=== PATIENT | male | born 1945 | race Caucasian/White ===

== ENCOUNTER → 2019-12-18 | Outpatient (CLI) | payer MEDICARE ==
[~2019-12-18] MED LIST: CARV3.12 PO; DULA0.75 SQ; FERR325T22 PO; FURO40TA5 PO; INSU100I24 SQ; LISI-617 PO; MAGN400T40 PO; METO5TAB7 PO; POTA-79 PO; SPIR25TA6 PO; TRAM50TA4 PO
== END | disposition home or self-care (01) ==
LOC: WHH 08:20
PROVIDERS: ATTEND Surgery
DX: E11.621 Type 2 diabetes mellitus with foot ulcer (principal); I70.235 Atherosclerosis of native arteries of right leg with ulceration of other part of foot; L97.512 Non-pressure chronic ulcer of other part of right foot with fat layer exposed; S91.301D Unspecified open wound, right foot, subsequent encounter; E11.22 Type 2 diabetes mellitus with diabetic chronic kidney disease; I13.0 Hypertensive heart and chronic kidney disease with heart failure and stage 1 through stage 4 chronic kidney disease, or unspecified chronic kidney disease; I50.22 Chronic systolic (congestive) heart failure; N18.3 Chronic kidney disease, stage 3 (moderate); E11.40 Type 2 diabetes mellitus with diabetic neuropathy, unspecified; E11.51 Type 2 diabetes mellitus with diabetic peripheral angiopathy without gangrene; I48.20 Chronic atrial fibrillation, unspecified; E78.5 Hyperlipidemia, unspecified; J44.9 Chronic obstructive pulmonary disease, unspecified; I25.10 Atherosclerotic heart disease of native coronary artery without angina pectoris; G47.33 Obstructive sleep apnea (adult) (pediatric); E03.9 Hypothyroidism, unspecified; E66.9 Obesity, unspecified; Z68.35 Body mass index [BMI] 35.0-35.9, adult; Z87.891 Personal history of nicotine dependence; Z95.0 Presence of cardiac pacemaker; Z95.1 Presence of aortocoronary bypass graft; X58.XXXD Exposure to other specified factors, subsequent encounter
CPT/HCPCS: 11042; 82948; A4450; A6021; G0463

== ENCOUNTER → 2019-12-25 | Outpatient (CLI) | payer MEDICARE | END | disposition home or self-care (01) | LOC: WHH 08:30 | PROVIDERS: ATTEND Surgery | DX: E11.621 Type 2 diabetes mellitus with foot ulcer (principal); I70.235 Atherosclerosis of native arteries of right leg with ulceration of other part of foot; L97.512 Non-pressure chronic ulcer of other part of right foot with fat layer exposed; S91.301D Unspecified open wound, right foot, subsequent encounter; E11.22 Type 2 diabetes mellitus with diabetic chronic kidney disease; I13.0 Hypertensive heart and chronic kidney disease with heart failure and stage 1 through stage 4 chronic kidney disease, or unspecified chronic kidney disease; I50.22 Chronic systolic (congestive) heart failure; N18.3 Chronic kidney disease, stage 3 (moderate); E11.40 Type 2 diabetes mellitus with diabetic neuropathy, unspecified; E11.51 Type 2 diabetes mellitus with diabetic peripheral angiopathy without gangrene; I48.20 Chronic atrial fibrillation, unspecified; E78.5 Hyperlipidemia, unspecified; J44.9 Chronic obstructive pulmonary disease, unspecified; I25.10 Atherosclerotic heart disease of native coronary artery without angina pectoris; G47.33 Obstructive sleep apnea (adult) (pediatric); E03.9 Hypothyroidism, unspecified; E66.9 Obesity, unspecified; Z68.35 Body mass index [BMI] 35.0-35.9, adult; Z87.891 Personal history of nicotine dependence; Z95.0 Presence of cardiac pacemaker; Z95.1 Presence of aortocoronary bypass graft; X58.XXXD Exposure to other specified factors, subsequent encounter | CPT/HCPCS: 11042; A6021 ==

== ENCOUNTER 2020-01-15 08:30 | Outpatient (CLI) | payer MEDICARE | END 2020-01-15 13:58 | disposition home or self-care (01) | LOC: WHH 08:30 | PROVIDERS: ATTEND Surgery | DX: E11.621 Type 2 diabetes mellitus with foot ulcer (principal); I70.235 Atherosclerosis of native arteries of right leg with ulceration of other part of foot; L97.512 Non-pressure chronic ulcer of other part of right foot with fat layer exposed; S91.301D Unspecified open wound, right foot, subsequent encounter; E11.22 Type 2 diabetes mellitus with diabetic chronic kidney disease; I13.0 Hypertensive heart and chronic kidney disease with heart failure and stage 1 through stage 4 chronic kidney disease, or unspecified chronic kidney disease; I50.22 Chronic systolic (congestive) heart failure; N18.3 Chronic kidney disease, stage 3 (moderate); E11.40 Type 2 diabetes mellitus with diabetic neuropathy, unspecified; E11.51 Type 2 diabetes mellitus with diabetic peripheral angiopathy without gangrene; I42.0 Dilated cardiomyopathy; E78.5 Hyperlipidemia, unspecified; J44.9 Chronic obstructive pulmonary disease, unspecified; I25.10 Atherosclerotic heart disease of native coronary artery without angina pectoris; G47.33 Obstructive sleep apnea (adult) (pediatric); E03.9 Hypothyroidism, unspecified; E66.9 Obesity, unspecified; Z68.35 Body mass index [BMI] 35.0-35.9, adult; Z87.891 Personal history of nicotine dependence; Z95.0 Presence of cardiac pacemaker; Z95.1 Presence of aortocoronary bypass graft; X58.XXXD Exposure to other specified factors, subsequent encounter | CPT/HCPCS: G0463 ==

== ENCOUNTER 2022-03-13 14:21 | Inpatient (IN) | payer MEDICARE ==
[~2022-03-13] VITALS: Ht 172.7 cm; Wt 93.8 kg
[~2022-03-13 14:21] MED LIST changes: -LISI-617 PO; +LISI5TAB21 PO
[2022-03-13] MEDS ORDERED: BACITRACIN 1 EACH PACKET TP ONE (15:20)
[2022-03-13 15:47] LABS: BASOPHILS % (AUTO) 0.3 % (0.0-5.0); EOSINOPHILS % (AUTO) 0.4 % (0.0-8.0); HEMATOCRIT 42.8 % (42-54); MEAN CORPUSCULAR HEMOGLOBIN 29.9 pg (27.0-33.0); MEAN CORPUSCULAR HGB CONC 34.3 g/dL (32.0-36.0); MONOCYTES % (AUTO) 6.4 % (3.0-13.0); NEUTROPHILS % (AUTO) 77.6 % (40.0-77.0); PLATELET COUNT (AUTO) 170 K/uL (130-400); RED BLOOD CELL COUNT(AUTO) 4.92 MIL/uL (4.50-6.20); RED CELL DISTRIBUTION WIDTH 12.5 % (11.0-15.5); WHITE BLOOD COUNT (AUTO) 7.1 K/uL (4.8-10.8)
[2022-03-13 16:09] LABS: ALBUMIN 2.6 g/dL (3.5-5.0); POTASSIUM 3.5 mmol/L (3.5-5.1); TOTAL PROTEIN, SERUM 6.8 g/dL (6.0-8.3)
[2022-03-13] MEDS ORDERED: INSULIN HUMULIN R 100 UNIT/ML 3ML SQ ONE (16:30)
[2022-03-13] MEDS ORDERED: 0.9% NACL 500ML IV.SOLN 500 ML IV ONE (16:30)
[2022-03-13] MEDS ORDERED: 0.9%NACL 1000ML 1,000 ML IV ONE (16:30)
[2022-03-13 17:02] LABS: APPEARANCE,URINE CLEAR (CLEAR); BILIRUBIN,URINE NEGATIVE (NEGATIVE); COLOR,URINE LIGHT-YELLOW (YELLOW); GLUCOSE, URINE (UA) >=1000 mg/dL (NEGATIVE); KETONES,URINE NEGATIVE (NEGATIVE); LEUKOCYTE ESTERASE ,URINE NEGATIVE Leu/uL (NEGATIVE); NITRATE,URINE NEGATIVE (NEGATIVE); OCCULT BLOOD,URINE NEGATIVE (NEGATIVE); PROTEIN,URINE 30 mg/dL (NEGATIVE); UROBILINOGEN,URINE 0.2 mg/dL (0.2-1.0)
[2022-03-13 17:04] LABS: MUCUS,URINE RARE LPF (None Seen); RBC,URINE 0-1 /HPF (0-1); WBC,URINE 0-1 /HPF (0-1)
[2022-03-13] MEDS: 1/2 NS 1000ML 1,000 ML IV SCH (18:56)
[2022-03-13] MEDS: CEFTRIAXONE 1G VIAL IVP SCH (20:00)
[2022-03-13] MEDS: APIXABAN 5 MG TABLET PO SCH (21:38)
[2022-03-13] MEDS: INSULIN GLARGINE 100 UNITS/ML 10 ML VIAL SQ SCH (21:38)
[2022-03-13] MEDS: INSULIN HUMULIN R 100 UNIT/ML 3ML SQ SCH (21:38)
[2022-03-13 23:30] VITALS: BP 148/52
[2022-03-14 03:41] VITALS: BP 134/44
[2022-03-14] MEDS ORDERED: ROSU20TA31 PO (03:47)
[2022-03-14] MEDS ORDERED: FINA5TAB41 PO (03:47)
[2022-03-14] MEDS ORDERED: METO-391 PO (03:47)
[2022-03-14] MEDS ORDERED: RIVA20TA PO (03:47)
[2022-03-14] MEDS ORDERED: METO2.5T2 PO (03:47)
[2022-03-14] MEDS ORDERED: LISI20TA24 PO (03:47)
[2022-03-14] MEDS ORDERED: FERR325T29 PO (03:47)
[2022-03-14] MEDS ORDERED: FURO40TA5 PO (03:47)
[2022-03-14] MEDS: INSULIN HUMULIN R 100 UNIT/ML 3ML SQ SCH ×4 (05:56→19:42)
[2022-03-14 07:12] VITALS: BP 152/69
[2022-03-14] MEDS: APIXABAN 5 MG TABLET PO SCH ×2 (08:24→19:35)
[2022-03-14] MEDS ORDERED: SEMA3TAB4 PO (11:06)
[2022-03-14] MEDS ORDERED: EMPA1TAB19 PO (11:06)
[2022-03-14] MEDS ORDERED: ACETAMINOPHEN 325 MG TAB PO PRN (12:00)
[2022-03-14] MEDS ORDERED: ACETAMINOPHEN 325 MG TAB ONE (12:01)
[2022-03-14 12:15] VITALS: BP 133/40
[2022-03-14] MEDS: 1/2 NS 1000ML 1,000 ML IV SCH (13:48)
[2022-03-14 16:08] VITALS: BP 166/60
[2022-03-14 19:00] VITALS: BP 143/50
[2022-03-14] MEDS: CEFTRIAXONE 1G VIAL IVP SCH (19:35)
[2022-03-14] MEDS: INSULIN GLARGINE 100 UNITS/ML 10 ML VIAL SQ SCH (19:42)
[2022-03-14 23:26] VITALS: BP 152/53
[2022-03-15 03:51] VITALS: BP 149/55
[2022-03-15 05:39] LABS: BASOPHILS % (AUTO) 0.3 % (0.0-5.0); EOSINOPHILS % (AUTO) 2.5 % (0.0-8.0); HEMATOCRIT 41.4 % (42-54); LYMPHOCYTES % (AUTO) 28.3 % (21.0-51.0); MEAN CORPUSCULAR HEMOGLOBIN 32.1 pg (27.0-33.0); MEAN CORPUSCULAR HGB CONC 35.7 g/dL (32.0-36.0); MEAN CORPUSCULAR VOLUME 89.8 fL (79-99); MONOCYTES % (AUTO) 6.9 % (3.0-13.0); NEUTROPHILS % (AUTO) 61.6 % (40.0-77.0); PLATELET COUNT (AUTO) 188 K/uL (130-400); RED BLOOD CELL COUNT(AUTO) 4.61 MIL/uL (4.50-6.20); WHITE BLOOD COUNT (AUTO) 7.2 K/uL (4.8-10.8)
[2022-03-15] MEDS: INSULIN HUMULIN R 100 UNIT/ML 3ML SQ SCH ×4 (05:45→21:53)
[2022-03-15 05:54] LABS: CREATININE 1.2 mg/dL (0.5-1.5)
[2022-03-15 05:58] LABS: POTASSIUM 2.6 mmol/L (3.5-5.1)
[2022-03-15] MEDS ORDERED: LIDOCAINE HCL-MPF 1% 2ML VIAL IV PRN (07:00)
[2022-03-15] MEDS ORDERED: MAGNESIUM 2GM PREMIX 50ML 50 ML IV PRN (07:00)
[2022-03-15 08:00] VITALS: BP 148/51
[2022-03-15] MEDS: RIVAROXABAN 20 MG TABLET PO SCH (08:22)
[2022-03-15] MEDS: FERROUS SULFATE 325 MG TABLET.DR PO SCH (08:22)
[2022-03-15] MEDS: METOLAZONE 2.5 MG TABLET PO SCH (08:22)
[2022-03-15] MEDS: METOPROLOL SUCCINATE 50 MG TAB.SR.24H PO SCH (08:22)
[2022-03-15] MEDS: FINASTERIDE 5 MG TABLET PO SCH (08:22)
[2022-03-15] MEDS: FUROSEMIDE 40 MG TABLET PO SCH ×2 (08:23→20:38)
[2022-03-15] MEDS: LISINOPRIL 20 MG TABLET PO SCH (08:23)
[2022-03-15] MEDS: BACITRACIN 28.4 GM OINT TP SCH (08:24)
[2022-03-15] MEDS: KCL 20 MEQ ERTAB PO PRN (08:27)
[2022-03-15] MEDS: RYBELSUS 3 MG PO SCH (08:28)
[2022-03-15] MEDS: SYNJARDY PO SCH (08:28)
[2022-03-15 12:00] VITALS: BP 154/63
[2022-03-15] MEDS: 1/2 NS 1000ML 1,000 ML IV SCH (13:13)
[2022-03-15] MEDS: POTASSIUM CHLORIDE 20MEQ/100ML 100 ML IV PRN ×2 (13:25→23:24)
[2022-03-15] MEDS: POTASSIUM CHLORIDE 10% ELIXIR 20 MEQ/15 ML UDCUP PO PRN ×2 (13:25→20:39)
[2022-03-15 16:00] VITALS: BP 138/41
[2022-03-15 20:00] VITALS: BP 149/66
[2022-03-15] MEDS: CEFTRIAXONE 1G VIAL IVP SCH (20:38)
[2022-03-15] MEDS ORDERED: ATORVASTATIN 40 MG TABLET PO SCH (21:00)
[2022-03-15] MEDS: INSULIN GLARGINE 100 UNITS/ML 10 ML VIAL SQ SCH (21:54)
[2022-03-16] VITALS: BP 177/61
[2022-03-16 04:00] VITALS: BP 162/66
[2022-03-16] MEDS: 1/2 NS 1000ML 1,000 ML IV SCH ×2 (05:07→06:10)
[2022-03-16] MEDS: INSULIN HUMULIN R 100 UNIT/ML 3ML SQ SCH ×2 (05:36→11:55)
[2022-03-16 08:00] VITALS: BP 132/45
[2022-03-16] MEDS: METOPROLOL SUCCINATE 50 MG TAB.SR.24H PO SCH (08:47)
[2022-03-16] MEDS: FERROUS SULFATE 325 MG TABLET.DR PO SCH (08:47)
[2022-03-16] MEDS: METOLAZONE 2.5 MG TABLET PO SCH (08:47)
[2022-03-16] MEDS: FINASTERIDE 5 MG TABLET PO SCH (08:47)
[2022-03-16] MEDS: RIVAROXABAN 20 MG TABLET PO SCH (08:48)
[2022-03-16] MEDS: LISINOPRIL 20 MG TABLET PO SCH (08:48)
[2022-03-16] MEDS: SYNJARDY PO SCH (08:48)
[2022-03-16] MEDS: FUROSEMIDE 40 MG TABLET PO SCH (08:48)
[2022-03-16] MEDS: RYBELSUS 3 MG PO SCH (08:48)
[2022-03-16] MEDS: BACITRACIN 28.4 GM OINT TP SCH (08:49)
[2022-03-16 09:41] LABS: BASOPHILS % (AUTO) 0.4 % (0.0-5.0); EOSINOPHILS % (AUTO) 2.1 % (0.0-8.0); LYMPHOCYTES % (AUTO) 24.8 % (21.0-51.0); MEAN CORPUSCULAR HEMOGLOBIN 33.8 pg (27.0-33.0); MEAN CORPUSCULAR HGB CONC 36.7 g/dL (32.0-36.0); MEAN CORPUSCULAR VOLUME 92.1 fL (79-99); MONOCYTES % (AUTO) 6.7 % (3.0-13.0); NEUTROPHILS % (AUTO) 65.5 % (40.0-77.0); PLATELET COUNT (AUTO) 215 K/uL (130-400); RED BLOOD CELL COUNT(AUTO) 4.67 MIL/uL (4.50-6.20); RED CELL DISTRIBUTION WIDTH 13.9 % (11.0-15.5); WHITE BLOOD COUNT (AUTO) 10.1 K/uL (4.8-10.8)
[2022-03-16 09:48] LABS: CREATININE 1.3 mg/dL (0.5-1.5); POTASSIUM 3.1 mmol/L (3.5-5.1)
[2022-03-16] MEDS: POTASSIUM CHLORIDE 20MEQ/100ML 100 ML IV PRN (11:02)
[2022-03-16 12:00] VITALS: BP 136/94
[2022-03-16] MEDS: KCL 20 MEQ ERTAB PO PRN ×2 (12:03→15:58)
[2022-03-16 16:00] VITALS: BP 138/62
== END 2022-03-16 17:15 | DRG 194 ==
LOC: EDH 14:21 → EDHIP 17:56 → OBSVTOIN 17:56 → 3AH 23:31
PROVIDERS: ADMIT Internal Medicine; ATTEND Internal Medicine
DX: J18.9 Pneumonia, unspecified organism (principal); J44.0 Chronic obstructive pulmonary disease with (acute) lower respiratory infection; E11.65 Type 2 diabetes mellitus with hyperglycemia; E86.0 Dehydration; I50.9 Heart failure, unspecified; I48.91 Unspecified atrial fibrillation; E78.5 Hyperlipidemia, unspecified; I25.10 Atherosclerotic heart disease of native coronary artery without angina pectoris; I11.0 Hypertensive heart disease with heart failure; Z79.01 Long term (current) use of anticoagulants; Z79.4 Long term (current) use of insulin
CPT/HCPCS: 36415; 70450; 72125; 80048; 80053; 81001; 82948; 83735; 84484; 85025; 93005; 97039; G0378; J0696; J1815; J3480; J7040

== ENCOUNTER 2022-04-13 14:20 | Observation (INO) | payer MEDICARE ==
[~2022-04-13] VITALS: Ht 170.2 cm; Wt 99.8 kg
[~2022-04-13 14:20] MED LIST changes: -CARV3.12 PO; -DULA0.75 SQ; +EMPA1TAB19 PO; -FERR325T22 PO; +FERR325T29 PO; +FINA5TAB41 PO; -INSU100I24 SQ; +LISI20TA24 PO; -LISI5TAB21 PO; -MAGN400T40 PO; +METO-391 PO; +METO2.5T2 PO; -METO5TAB7 PO; -POTA-79 PO; +RIVA20TA PO; +ROSU20TA31 PO; +SEMA3TAB4 PO; -SPIR25TA6 PO; -TRAM50TA4 PO
[2022-04-13] MEDS ORDERED: 0.9%NACL 1000ML 1,000 ML IV ONE (14:30)
[2022-04-13 14:51] LABS: BASOPHILS % (AUTO) 0.2 % (0.0-5.0); HEMATOCRIT 49.5 % (42-54); LYMPHOCYTES % (AUTO) 9.8 % (21.0-51.0); MEAN CORPUSCULAR HEMOGLOBIN 29.9 pg (27.0-33.0); MEAN CORPUSCULAR HGB CONC 30.1 g/dL (32.0-36.0); MEAN CORPUSCULAR VOLUME 99.4 fL (79-99); MONOCYTES % (AUTO) 2.9 % (3.0-13.0); NEUTROPHILS % (AUTO) 85.8 % (40.0-77.0); PLATELET COUNT (AUTO) 314 K/uL (130-400); RED BLOOD CELL COUNT(AUTO) 4.98 MIL/uL (4.50-6.20); RED CELL DISTRIBUTION WIDTH 12.9 % (11.0-15.5); WHITE BLOOD COUNT (AUTO) 20.2 K/uL (4.8-10.8)
[2022-04-13] MEDS ORDERED: 0.9%NACL 1000ML 1,983 ML IV ONE (15:00)
[2022-04-13] MEDS ORDERED: ZOSYN 3.375GM +NS 50ML IV ONE (15:00)
[2022-04-13 15:03] LABS: INR 1.68 (0.85-1.15); PROTHROMBIN TIME 17.8 SEC (9.6-11.6)
[2022-04-13 15:04] LABS: PARTIAL THROMBOPLASTIN TIME 61.9 SEC (26.3-35.5)
[2022-04-13 15:09] LABS: ALBUMIN 2.5 g/dL (3.5-5.0); MAGNESIUM 3.6 mg/dL (1.80-2.40); POTASSIUM 5.9 mmol/L (3.5-5.1); TOTAL PROTEIN, SERUM 7.8 g/dL (6.0-8.3)
[2022-04-13 15:17] LABS: CREATININE 14.1 mg/dL (0.5-1.5)
[2022-04-13 15:36] LABS: ABG BASE EXCESS -34.3 mmol/L (-2.0-3.0); ABG OXYGEN SATURATION 96.3 % (95.0-99.0); ABG PCO2 18 mmHg (35-48)
[2022-04-13] MEDS ORDERED: SODIUM BICARB 50MEQ 50ML VIAL 100 ML ONE (15:37)
[2022-04-13] MEDS ORDERED: CALCIUM GLUC 1GM/10ML VIAL ONE (15:37)
[2022-04-13] MEDS ORDERED: SODIUM BICARB 50MEQ 50ML VIAL IV STA (15:51)
[2022-04-13] MEDS ORDERED: CALCIUM GLUC 1GM/10ML VIAL IV PRN (16:00)
[2022-04-13] MEDS ORDERED: 0.9%NACL 1000ML 1,000 ML IV SCH (18:30)
[2022-04-13 19:00] VITALS: BP 111/69
[2022-04-13] MEDS ORDERED: NYST100P2 MC (22:58)
[2022-04-13] MEDS ORDERED: INSU100V52 SQ (22:58)
[2022-04-13] MEDS ORDERED: LACT10SO9 PO (22:58)
[2022-04-13] MEDS ORDERED: COLL30OI TP (22:58)
[2022-04-13] MEDS ORDERED: ROSU20TA31 PO (22:58)
[2022-04-13] MEDS ORDERED: NEOM30OI18 TP (22:58)
[2022-04-13] MEDS ORDERED: REGULAR INSULIN SQ (22:58)
[2022-04-13] MEDS ORDERED: OZEMPIC SQ (22:58)
[2022-04-13] MEDS ORDERED: FERS325 PO (22:58)
[2022-04-13] MEDS ORDERED: BALS60OI TP (22:58)
[2022-04-14] VITALS: BP 40/15
== END 2022-04-14 00:40 ==
LOC: EDH 14:20 → EDHIP 16:01 → 4BH 19:33
PROVIDERS: ADMIT Internal Medicine; ATTEND Internal Medicine
DX: A41.9 Sepsis, unspecified organism (principal); R65.20 Severe sepsis without septic shock; E87.5 Hyperkalemia; T68.XXXA Hypothermia, initial encounter; N18.6 End stage renal disease; E11.22 Type 2 diabetes mellitus with diabetic chronic kidney disease; E11.649 Type 2 diabetes mellitus with hypoglycemia without coma; J18.9 Pneumonia, unspecified organism; E87.20 Acidosis, unspecified; Z87.01 Personal history of pneumonia (recurrent); Z95.1 Presence of aortocoronary bypass graft; Z79.899 Other long term (current) drug therapy; Z98.890 Other specified postprocedural states
CPT/HCPCS: 83605 ×3; 96365; 96375; 82435; 82550; 82947; 83735; 84484; 84132; 84295; 80053; 82803; 82140; 85025; 85610; 85730; 85018; 86850; 86900; 86901; 87040 ×2; 82948 ×2; 82270; 36415; 71045; 99291; 93005; 36600; G0378 ×9; J3490; J0610; J2543